=== PATIENT | male | born 1990 | race Caucasian/White ===

== ENCOUNTER 2019-02-11 05:55 | Outpatient (CLI) | payer OTHER ==
[~2019-02-11] VITALS: Ht 188 cm; Wt 102.1 kg
== END 2019-02-11 14:02 | disposition home or self-care (01) ==
LOC: PREOP 05:55
PROVIDERS: ATTEND Orthopaedic Surgery
DX: Z01.818 Encounter for other preprocedural examination (principal)

== ENCOUNTER 2019-02-13 09:34 | Day surgery (SDC) | payer OTHER ==
--- NOTE | 2019-02-11 19:17 | HISTORY AND PHYSICAL ---
DATE OF SERVICE: ADMISSION HISTORY AND PHYSICAL This will be for outpatient surgery on 02/13/2019, for left knee arthroscopy. HISTORY OF PRESENT ILLNESS: The patient is a 28-year-old gentleman who previously underwent left knee arthroscopy with microfracture who did well until recently. He reports pain without any specific injury. He has known osteochondral defect of his medial femoral condyle. He reports increasing pain with activities with activity limitations. He has tried activity modifications and injections without relief. Due to functional impairment and failure to improve with conservative measures, the patient elected to proceed with surgical intervention. REVIEW OF SYSTEMS: No chest pain, no shortness of breath, no dysuria. PAST MEDICAL HISTORY: Unremarkable. PAST SURGICAL HISTORY: Left knee arthroscopy. FAMILY HISTORY: Significant for hypertension. PRIMARY CARE PROVIDER: Dr. Connolly. MEDICATIONS: No. ALLERGIES: No known drug allergies. SOCIAL HISTORY: The patient denies tobacco use. Drinks alcohol socially. RADIOGRAPHS: As above. PHYSICAL EXAMINATION: GENERAL: The patient is a well-developed, well-nourished, in no acute distress. HEENT: Normocephalic, atraumatic. Pupils are equal, round and reactive to light. Oropharynx is clear. NECK: Supple, no lymphadenopathy. LUNGS: Clear to auscultation bilaterally. HEART: Regular rate and rhythm. ABDOMEN: Soft, nontender, nondistended. EXTREMITIES: The left knee demonstrates a slight effusion. He is tender along his medial femoral condyle and has pain medially with Carmenza's. There is no varus valgus laxity. Negative anterior and posterior drawer. Range of motion is 0/0/140. He ambulates with a normal heel-to-toe gait. IMPRESSION: Osteochondral defect left knee medial femoral condyle. PLAN: Left knee arthroscopy with microfracture possible allograft of the defect. Risks, benefits, options, ramifications and recovery were discussed at length with the patient. He understands and wishes to proceed. Job ID: [id number] DocumentID: [id number] Dictated Date: 02/04/2019 08:07:12 Wood Room Supervisor Date: 02/04/2019 10:02:07 Dictated By: TOY ELLIS MD
[~2019-02-13] VITALS: Ht 188 cm; Wt 102.1 kg
[2019-02-13] VITALS (10 sets, daily range): BP systolic 107–143; BP diastolic 59–88
--- NOTE | 2019-02-13 09:48 | Progress Note-Pre Operative ---
Pre-Operative Progress Note H&P Reviewed The H&P was reviewed, patient examined and no changes noted. 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
--- NOTE | 2019-02-13 09:49 | Progress Note-Post Operative ---
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
[2019-02-13] MEDS ORDERED: MIDAZOLAM 2 MG/2 ML (VERSED) VIAL ONE (10:04)
[2019-02-13] MEDS ORDERED: fentaNYL INJECTION 100 MCG/2 ML AMP ONE (10:05)
[2019-02-13] MEDS ORDERED: LIDOCAINE PF 2% 5 ML (XYLOCAINE) VIAL ONE (10:08)
[2019-02-13] MEDS ORDERED: ONDANSETRON 4 MG/2 ML (SDV) Z0FRAN ONE (10:08)
[2019-02-13] MEDS ORDERED: proPOfol 200 MG/20 ML (DIPRIVAN) VIAL IV ONE (10:08)
[2019-02-13] MEDS ORDERED: DEXAMETHASONE 10 MG/ML (DECADRON) 1 ML VIAL ONE (10:08)
[2019-02-13] MEDS ORDERED: morphine PF (DURAMORPH) 10 MG/10 ML AMP ONE (10:16)
[2019-02-13] MEDS ORDERED: BUPIVACAINE 0.25% 30 ML (SENSORCAINE) VIAL ONE (10:16)
[2019-02-13] MEDS ORDERED: ceFAZolin INJECTION 1,000 MG ONE (10:20)
[2019-02-13] MEDS: LACTATED RINGERS 1,000 ML IV PRN ×2 (10:25→12:07)
[2019-02-13] MEDS ORDERED: ceFAZolin INJECTION 1,000 MG in WATER (STERILE) FOR INJECTION 10 ML IV ONE (10:30)
[2019-02-13] MEDS ORDERED: HYDROcodone/APAP 7.5 MG/325 MG (LORTAB, LORCET PLUS) TABLET PO PRN (10:45)
[2019-02-13] MEDS ORDERED: SEVOFLURANE (ULTANE) 15 ML INHAL SOLN ONE ×2 (11:52→12:05)
[2019-02-13] MEDS ORDERED: ONDANSETRON 4 MG/2 ML (SDV) Z0FRAN IVP PRN (12:30)
[2019-02-13] MEDS ORDERED: HYDROmorphone 2 MG/ML VIAL (DILAUDID) IV ONE (12:30)
[2019-02-13] MEDS ORDERED: morphine INJ 10 MG/ML 1ML (SYR OR VIAL) IVP ONE (12:30)
[2019-02-13] MEDS ORDERED: HYDR-3816 PO (12:38)
--- NOTE | 2019-02-13 14:21 | Physical Therapy Ortho Eval ---
PT Orthopedic Evaluation Type of Surgery Knee Scope left side, TTWB Prior Level of Function Current Living Status: Significant Other Locomotion (Upon Admit): Independent Established Durable Medical Eq: Crutches Subjective Subjective Patient in bed pre tx, agrees to PT, has 4/10 pain in left knee. Entry Into Home: Stairs With Railing Steps Into Home: 2 Motor Control Motor Control: Motor Control WNL ROM left knee extension +2 degrees, flexion 95 degrees Gait Gait Assistive Device: Crutches Left Lower Extremity: Left Weight Bearing Status LLE: Touch Toe Bearing Gait (FIM): 2 Distance: 100' Gait Level of Assist: 5 Summary/Comments Patient ambulated 100' with axillary crutches with SBA, and he also went up and down 1 step with SBA. Patient is familiar with using crutches, he was using them in 2010 and performs the step and ambulation appropriately. Treatment Rendered Treatment: Therapeutic Exercises, Gait Train, Step Train Exercise Instruction: Quad Sets, Heel Slides, Ankle Pumps Assessment/Goals Goal Time Frame: 1 Visit Understands HEP: Yes Safe Ambulation: Yes Plan Treatment Plan: Discharge PT/Family Agrees to Plan: Yes Time Time In: 1400 Time Out: 1413 Total Billed Treatment Time: 13 Billed Treatment Time 1 visit FARHAT AVILES PT Feb 13, 2019 14:21
--- NOTE | 2019-02-13 16:55 | OPERATIVE REPORT ---
DATE OF SERVICE: 02/13/2019 PREOPERATIVE DIAGNOSIS: Osteochondritis dissecans of the left knee, medial femoral condyle. POSTOPERATIVE DIAGNOSIS: Osteochondritis dissecans of the left knee, medial femoral condyle. PROCEDURE: Arthroscopic left knee allograft to the medial femoral condyle. SURGEON: Levy Ellis MD. PRODUCTION OR PLANT ENGINEER: Melvin Escudero, who assisted throughout the procedure and closed the incisions. ANESTHESIA: General endotracheal by Lorena Sosa CRNA. TOURNIQUET TIME: 46 minutes at 300 mmHg. ESTIMATED BLOOD LOSS: Minimal. DRAINS: None. COMPLICATIONS: None. POSTOPERATIVE PLAN: Toe-touch weightbearing for 6 weeks. The patient was transferred to the recovery room awake and stable condition. STATEMENT OF MEDICAL NECESSITY: The patient is a 28-year-old who while in high school, underwent a microfracture for medial femoral condyle chondral defect. He had done well until the last year or so and he began experiencing increasing pain. Radiographs revealed osteochondritis dissecans of the medial femoral condyle. Due to functional impairment and failure to improve with conservative measures, the patient elected to proceed with surgical intervention. Examination under anesthesia revealed range of motion 0/0/140 with negative Peter, negative anterior and posterior drawer. No varus valgus laxity, negative pivot shift. ARTHROSCOPIC FINDINGS: The patellofemoral joint space demonstrated no gross chondral abnormalities. The medial and lateral gutters were clear. The ACL and PCL were intact. Lateral compartment demonstrated no meniscal or chondral pathology. The medial compartment demonstrated a 1 x 1 cm full thickness chondral flap at the osteochondritis dissecans site. DESCRIPTION OF PROCEDURE: After risks and benefits of procedure were discussed and questions were answered, an informed consent was signed and placed on the chart. The operative site was confirmed in the preoperative holding area initialed by the surgeon. The patient was then transferred to the operating room. After adequate levels of general endotracheal anesthetic were obtained, a timeout was called, confirming the operative site. Examination under anesthesia was performed with above findings noted. The left lower extremity was prepped and draped in the usual sterile fashion. The knee joint was injected with 60 mL fluid and standard inferolateral portal was placed through arthroscope under direct visualization, inferior medial portal was created. The menisci and cruciates carefully probed with the above findings noted. . The chondral flap on the medial femoral condyle was debrided with a shaver back to a well-shouldered lesion. This was then curetted and a pick was used to perform a microfracture. The allograft was then prepared using the [employer] system. Multiple attempts were made to dry the space arthroscopically, but this was unsuccessful. Therefore, mini arthrotomy was performed. The lesion was dried and the allograft was placed in position and then fibrin glue was placed superior to this. Excellent coverage was obtained. This was held for 5 minutes and then the arthrotomy was closed with 0 Vicryl in [id number] interrupted fashion. The wound was copiously irrigated. A 4-0 nylon was used to close the incisions. A soft dressing was applied. The patient was then transferred to the recovery room awake and stable condition. Job ID: [id number] DocumentID: [id number] Dictated Date: 02/13/2019 12:13:53 Coal Hiker Date: 02/13/2019 16:54:38 Dictated By: LEVY ELLIS MD
== END 2019-02-13 14:15 | disposition home or self-care (01) ==
LOC: SDC 09:34
PROVIDERS: ATTEND Orthopaedic Surgery
DX: M93.262 Osteochondritis dissecans, left knee (principal); Z79.891 Long term (current) use of opiate analgesic
CPT/HCPCS: 87081